=== PATIENT | male | born 1995 | race Two or more races ===

== ENCOUNTER 2017-11-27 03:00 | Emergency (ER) | payer OTHER ==
[~2017-11-27] VITALS: Ht 180.3 cm; Wt 61.2 kg
[2017-11-27] MEDS ORDERED: GILPHEX TR TAB1 EACH PO ×3 (06:11→06:14)
== END 2017-11-27 14:15 | disposition home or self-care (01) ==
LOC: ER 03:00
DX: B34.9 Viral infection, unspecified (principal); R50.9 Fever, unspecified

== ENCOUNTER 2022-03-04 22:31 | Emergency (ER) | payer OTHER ==
[~2022-03-04] VITALS: Ht 182.9 cm; Wt 69.9 kg
[~2022-03-04 22:31] MED LIST: GILPHEX TR TAB1 EACH PO
[2022-03-05] MEDS ORDERED: DICLOFENAC POTA50 MG PO (02:22)
== END 2022-03-05 02:36 | disposition home or self-care (01) ==
LOC: ER 22:31
DX: S00.93XA Contusion of unspecified part of head, initial encounter (principal); W18.30XA Fall on same level, unspecified, initial encounter; Y93.89 Activity, other specified; Y92.89 Other specified places as the place of occurrence of the external cause; Y99.9 Unspecified external cause status